=== PATIENT | male | born 1940 | race Caucasian/White ===

== ENCOUNTER 2016-09-09 10:59 | Outpatient (CLI) | payer MEDICARE, OTHER ==
[~2016-09-09] VITALS: Ht 182.9 cm; Wt 87.1 kg
[~2016-09-09 10:59] MED LIST: ACHD5005 PO; CETI10TA57 PO; DIVA500T PO; DIVA500T7 PO; DVL250TEC PO; OMEP20TA2 PO; PRV20T PO; SOTA80TA38 PO; STL80T PO; SULF-222 PO; WARF4TAB PO; WRF2T PO
--- OUTSIDE RECORDS SUMMARY | 2016-09-09 11:06 | XMS REPORT | Clinical Summary ---
Author Author Admin, E Organization [employer] Address Unknown Phone Unavailable Allergies, Adverse Reactions, Alerts Allergy Name Reaction Description Start Date Severity Status Provider NKDA Mild No Longer Active Giselle Ho APRN NKDA Critical No Longer Active Christian JOSEPH NKDA UNK Inactive Scarlett Jewell Conditions or Problems Problem Name Problem Code Onset Date Status Entry Date Provider Comment Standard Description Annotate TACHYCARDIA 785.0 Active Christian Jurado DO Tachycardia, unspecified ATRIAL FIBRILLATION WITH RAPID VENTRICULAR RESPONSE 427.31 Active Christian Jurado DO Atrial fibrillation FH DIABETES V18.0 Active Christian Jurado DO Family history of diabetes mellitus ATRIAL FIBRILLATION 427.31 Active Christian Jurado DO Atrial fibrillation HYPERTENSION 401.9 Active Christian Jurado DO Unspecified essential hypertension COUMADIN THERAPY V58.61 Active Christian Jurado DO Long-term (current) use of anticoagulants HYPERLIPIDEMIA 272.4 Active Christian Jurado DO Other and unspecified hyperlipidemia COMMON MIGRAINE 346.10 Active Christian Jurado DO Migraine without aura, without mention of intractable migraine, without mention of status migrainosus PREVENTIVE HEALTH CARE V70.0 Resolved Maribel Hamilton MD PhD Routine general medical examination at a health care facility THRUSH 112.0 Resolved Maribel Hamilton MD PhD Candidiasis of mouth UNSPECIFIED ANEMIA 285.9 Active Rupali Tunnelhill Anemia, unspecified ELBOW PAIN, RIGHT 719.42 Resolved Maribel Hamilton MD PhD Pain in joint involving upper arm CELLULITIS, SCALP 682.8 Resolved Maribel Hamilton MD PhD Cellulitis and abscess of other specified sites ANEMIA 285.9 Resolved Maribel Hamilton MD PhD Anemia , unspecified ABSCESS, LEG 682.6 Resolved Maribel Hamilton MD PhD Cellulitis and abscess of leg, except foot FRACTURE, WRIST, RIGHT 814.00 Resolved Maribel Hamilton MD PhD Closed fracture of carpal bone, unspecified BRONCHITIS-ACUTE 466.0 Inactive Christian Jurado DO Acute bronchitis UNSPECIFIED INFECTIVE OTITIS EXTERNA 380.10 Resolved Maribel Hamilton MD PhD Infective otitis externa, unspecified BRONCHITIS-ACUTE 466.0 Inactive Christian Santo Adrien DO Acute bronchitis SINUSITIS, ACUTE 461.9 Correction Maikel JOSEPH Acute sinusitis, unspecified ALLERGIC RHINITIS 477.9 Active Maikel JOSEPH Allergic rhinitis, cause unspecified 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 Maribel Hamilton MD PhD Neoplasm of uncertain behavior of skin Bronchitis-Acute 466.0 Active Christian Santo Adrien DO Acute bronchitis Lumbar strain, acute 847.2 Active Christian Santo Adrien DO Lumbar sprain 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 Christian Santo Adrien DO Diastasis of muscle Decreased hearing, bilateral 389.9 Active Giselle Ho [employer]BER[employer]IP SECRETARY Unspecified hearing loss Onychomycosis -dermatophytosis, nail 110.1 Active Jd Livingston MEMBERSHIP SECRETARY Dermatophytosis of nail Low hemoglobin 285.9 Active Allie Adams MA Anemia, unspecified PREVENTIVE HEALTH CARE ICD-V70.0 Inactive Maribel Hamilton MD PhD THRUSH ICD-112.0 Inactive Maribel Hamilton MD PhD 03/04 ELBOW PAIN, RIGHT ICD-719.42 Inactive Maribel Hamilton MD PhD CELLULITIS, SCALP ICD-682.8 Inactive Maribel Hamilton MD PhD ANEMIA ICD-285.9 Inactive Maribel Hamilton MD PhD 03/04 ABSCESS, LEG ICD-682.6 Inactive Maribel Hamilton MD PhD FRACTURE, WRIST, RIGHT ICD-814.00 Inactive Maribel Hamilton MD PhD BRONCHITIS-ACUTE ICD-466.0 Inactive Christian Jurado DO UNSPECIFIED INFECTIVE OTITIS EXTERNA ICD-380.10 Inactive Maribel Hamilton MD PhD BRONCHITIS-ACUTE ICD-466.0 Inactive Christian Jurado DO Medication List Medication Instructions Start Date Stop Date Generic Name NDC Status Provider Patient Instruction CYANOCOBALAMIN 1000 MCG/ML INJ SOLN inject IM weekly x 4 weeks then monthly CYANOCOBALAMIN 47304331511 Active Allie Adams MA Active COUMADIN 4 MG TABS 1 tablet orally daily except on Mon, Wed, and Fri take 1/2 tab. WARFARIN SODIUM 39941930084 Active Allie Adams MA Active LAMISIL 250 MG TAB 1 po qd TERBINAFINE HCL 42168845830 Active Jd Livingston APRN Active DIVALPROEX SODIUM 500 MG TBEC 1 TAB PO QOD DIVALPROEX SODIUM 44407434580 No Longer Active Christian Jurado DO Active OMEPRAZOLE 20 MG CPDR 1 tablet by mouth twice daily OMEPRAZOLE 54081085286 Active Christian Jurado DO Active GEMFIBROZIL 600 MG TABS 1 po daily GEMFIBROZIL 56655437210 Active Christian Jurado DO Active PRAVASTATIN SODIUM 10 MG TABS 1 po every hs PRAVASTATIN SODIUM 27806103156 No Longer Active Christian Jurado DO Active CYCLOBENZAPRINE HCL 10 MG TABS 1/2 tablet orally twice daily for muscle spasm CYCLOBENZAPRINE HCL 79358090617 Active Christian Jurado DO Active LEVAQUIN 500 MG TAB 1 tablet by mouth daily LEVOFLOXACIN 91792265800 No Longer Active Christian Jurado DO Active SOTALOL HCL 80 MG TABS 1/2 tab BID SOTALOL HCL 66093428903 Active Allie Adams MA Active PREDNISONE 20 MG TABS 3 po q day x 3 days, 2 po q days x 3 days , 1 po q days x 3 days, and 1/2 po q d x 4 PREDNISONE 40545089464 No Longer Active Maribel Hamilton MD PhD Active ZYRTEC ALLERGY 10 MG TABS 1 daily PRN CETIRIZINE HCL 50220512614 No Longer Active Maikel JOSEPH Active PREDNISONE 20 MG TAB 1 po bid 3 days, then daily for 3 days. 2012 PREDNISONE 98797564929 No Longer Active Maikel JOSEPH Active AZITHROMYCIN 250 MG TABS 2 po qd x 1 day, then 1 po qd x 4 days AZITHROMYCIN 11389058000 No Longer Active Christian Jurado DO Active POLYSACCHARIDE IRON COMPLEX 150 MG CAPS 1 tab by mouth b.i.d 2012 POLYSACCHARIDE IRON COMPLEX 51193700493 No Longer Active Christian Jurado DO Active MELOXICAM 7.5 MG TABS 1 tab by mouth daily MELOXICAM 90895221584 No Longer Active Christian Jurado DO Active PREDNISONE 20 MG TAB 1 po bid 3 days, then daily 3 days PREDNISONE 05442762752 No Longer Active Christian Jurado DO Active CEPHALEXIN 500 MG CAPS Take one (1) tablet by mouth four times a day CEPHALEXIN 79255016028 No Longer Active Christian Jurado DO Active AZITHROMYCIN 500 MG SOLR 1 po q day AZITHROMYCIN 84607982229 No Longer Active Christian Jurado DO Active BACTRIM DS 800-160 MG TAB 1 tab by mouth twice daily TRIMETHOPRIM-SULFAMETHOXAZOLE 45709419386 No Longer Active Christian Sykes PA Active NYSTATIN 585422 UNIT/ML SUSP 10 cc swish and swallow QID until 48 hours after thrush resolved NYSTATIN 51007481800 No Longer Active Christian Jurado DO Active VERAPAMIL HCL CR 120 MG [id number] 1 po bid VERAPAMIL HCL 55956400818 No Longer Active Maribel Hamilton MD PhD Active DIGOXIN 0.25 MG TABS Take one by mouth daily DIGOXIN 72345972170 No Longer Active Maribel Hamilton MD PhD Active ASPIRIN 81 MG CHEW TAB 1 tablet by mouth daily ASPIRIN 59492611134 No Longer Active Maribel Hamilton MD PhD Active PRILOSEC 10 MG CAP CR Take one by mouth daily OMEPRAZOLE 61586659619 No Longer Active Tracey Layton RN Active COUMADIN 3 MG TABS take 1 tablet every other day alternating with 4 mg 08/13 WARFARIN SODIUM 11769926109 No Longer Active Reshma Cordova Active COUMADIN 3 MG TAB Take one by mouth daily WARFARIN SODIUM 55051408168 No Longer Active THONY Zhou Active COUMADIN 5 MG FOR SOLN Take one by mouth daily WARFARIN SODIUM 70397649952 No Longer Active Reshma Cordova Active COUMADIN 5 MG FOR SOLN Take one by mouth daily COUMADIN 5 MG FOR SOLN WARFARIN SODIUM Inactive COUMADIN 3 MG TAB Take one by mouth daily COUMADIN 3 MG TAB 744943 WARFARIN SODIUM Inactive COUMADIN 3 MG TABS take 1 tablet every other day alternating with 4 mg 08/13 COUMADIN 3 MG TABS 271334 WARFARIN SODIUM Inactive PRILOSEC 10 MG CAP CR Take one by mouth daily PRILOSEC 10 MG CAP CR 372896 OMEPRAZOLE Inactive ASPIRIN 81 MG CHEW TAB 1 tablet by mouth daily ASPIRIN 81 MG CHEW TAB 156559 ASPIRIN Inactive DIGOXIN 0.25 MG TABS Take one by mouth daily DIGOXIN 0.25 MG TABS 740998 DIGOXIN Inactive VERAPAMIL HCL CR 120 MG [id number] 1 po bid VERAPAMIL HCL CR 120 MG [id number] VERAPAMIL HCL Inactive NYSTATIN 922743 UNIT/ML SUSP 10 cc swish and swallow QID until 48 hours after thrush resolved NYSTATIN 373115 UNIT/ML SUSP 731803 NYSTATIN Inactive BACTRIM DS 800-160 MG TAB 1 tab by mouth twice daily BACTRIM DS 800-160 MG TAB 510800 TRIMETHOPRIM-SULFAMETHOXAZOLE Inactive AZITHROMYCIN 500 MG SOLR 1 po q day AZITHROMYCIN 500 MG SOLR 20512803533 AZITHROMYCIN Inactive CEPHALEXIN 500 MG CAPS Take one (1) tablet by mouth four times a day CEPHALEXIN 500 MG CAPS 759733 CEPHALEXIN Inactive PREDNISONE 20 MG TAB 1 po bid 3 days, then daily 3 days PREDNISONE 20 MG TAB 585949 PREDNISONE Inactive MELOXICAM 7.5 MG TABS 1 tab by mouth daily MELOXICAM 7.5 MG TABS 395606 MELOXICAM Inactive POLYSACCHARIDE IRON COMPLEX 150 MG CAPS 1 tab by mouth b.i.d 2012 POLYSACCHARIDE IRON COMPLEX 150 MG CAPS POLYSACCHARIDE IRON COMPLEX Inactive PREDNISONE 20 MG TAB 1 po bid 3 days, then daily for 3 days. 2012 PREDNISONE 20 MG TAB 897942 PREDNISONE Inactive ZYRTEC ALLERGY 10 MG TABS 1 daily PRN ZYRTEC ALLERGY 10 MG TABS 9881827 CETIRIZINE HCL Inactive PREDNISONE 20 MG TABS 3 po q day x 3 days, 2 po q days x 3 days , 1 po q days x 3 days, and 1/2 po q d x 4 PREDNISONE 20 MG TABS 078152 PREDNISONE Inactive LEVAQUIN 500 MG TAB 1 tablet by mouth daily LEVAQUIN 500 MG TAB 089853 LEVOFLOXACIN Inactive PRAVASTATIN SODIUM 10 MG TABS 1 po every hs PRAVASTATIN SODIUM 10 MG TABS 243662 PRAVASTATIN SODIUM Inactive DIVALPROEX SODIUM 500 MG TBEC 1 TAB PO QOD DIVALPROEX SODIUM 500 MG TBEC 1988031 DIVALPROEX SODIUM Inactive AZITHROMYCIN 250 MG TABS 2 po qd x 1 day, then 1 po qd x 4 days AZITHROMYCIN 250 MG TABS 6747951 AZITHROMYCIN Inactive Advance Directives Directive Description Start Date LIVING WILL Vital Signs Date Name Value Unit Range Description blood pressure, diastolic - 8462-4 86 mm[Hg] BP pablo blood pressure, systolic - 8480-6 170 mm[Hg] BP sys pulse rate E&M - 8867-4 55 /min Heart rate temperature E&M 96.4 [degF] Body temperature weight E&M - 3141-9 198.5 [lb_av] Weight Measured blood pressure, diastolic - 8462-4 79 mm[Hg] BP pablo blood pressure, systolic - 8480-6 186 mm[Hg] BP sys height E&M - 8302-2 71.5 [in_us] Bdy height pulse rate E&M - 8867-4 65 /min Heart rate temperature E&M 96.6 [degF] Body temperature weight E&M - 3141-9 200 [lb_av] Weight Measured blood pressure, diastolic - 8462-4 78 mm[Hg] BP pablo blood pressure, systolic - 8480-6 181 mm[Hg] BP sys pulse rate E&M - 8867-4 63 /min Heart rate temperature E&M 97.5 [degF] Body temperature weight E&M - 3141-9 201 [lb_av] Weight Measured Diagnostic Results Date Name Value Unit Range Description Lab Report: CBC - Hematology leukocyte count, blood 5.0 10^3/MM^3 10*3/mm3 4.6-10.2 erythrocyte (RBC) count 4.31 10^6/MM^3 10*6/mm3 4.69-6.13 hemoglobin, blood 12.8 g/dL 13.5-17.5 hematocrit, blood 38.9 % 41.0-53.0 mean corpuscular volume, RBC 90 fL 80-97 mean corpuscular hemoglobin, RBC 29.6 pg 27.0-31.2 mean corpuscular hemoglobin concentration, RBC 32.8 G/DL % 31.8- 35.4 red blood cell distribution width 15.8 % 11.6-14.8 platelet count 258 10^3/MM^3 10*3/mm3 142-424 Lab Report: Comp. Metabolic Panel, Prothrombin Time - Chemistry urea nitrogen, blood 14 mg/dL 7-18 creatinine, serum 1.11 mg/dL 0.55-1.30 alanine aminotransferase (SGPT), serum 33 U/L 12-78 aspartate aminotransferase (SGOT), serum 33 U/L 15-37 calcium, serum 8.4 mg/dL 8.5-10.1 bilirubin, serum, total 0.30 mg/dL 0.00-1.00 blood glucose 87 mg/dL 65-110 chloride, serum 105 mmol/L 98-107 potassium, serum 5.0 mmol/L 3.5-5.2 carbon dioxide, venous blood 29.8 mmol/L 21.0-32.0 sodium, serum 141 mmol/L 136-145 Lab Report: Comp. Metabolic Panel, Prothrombin Time - Coagulation prothrombin time (patient) 15.6 SECS s 11.1-13.4 international normalized ratio (INR) 1.7 1.0-3.5 Lab Report: Prostatic Specific Ag - Chemistry prostate specific antigen 0.51 ng/mL 0.00-4.00 Lab Report: Prothrombin Time - Coagulation prothrombin time (patient) 19.6 SECS s 11.1-13.4 international normalized ratio (INR) 2.6 1.0-3.5 prothrombin time (patient) 19.8 SECS s 11.1-13.4 international normalized ratio (INR) 2.6 1.0-3.5 prothrombin time (patient) 23.8 SECS s 11.1-13.4 international normalized ratio (INR) 3.6 1.0-3.5 prothrombin time (patient) 17.7 SECS s 11.1-13.4 international normalized ratio (INR) 2.1 1.0-3.5 prothrombin time (patient) 17.8 SECS s 11.1-13.4 international normalized ratio (INR) 2.2 1.0-3.5 prothrombin time (patient) 19.5 SECS s 11.1-13.4 international normalized ratio (INR) 2.3 1.0-3.5 prothrombin time (patient) 21.3 SECS s 11.1-13.4 international normalized ratio (INR) 2.7 1.0-3.5 prothrombin time (patient) 23.4 SECS s 11.1-13.4 international normalized ratio (INR) 3.5 1.0-3.5 prothrombin time (patient) 14.4 SECS s 11.1-13.4 international normalized ratio (INR) 1.5 1.0-3.5 prothrombin time (patient) 21.3 SECS s 11.1-13.4 international normalized ratio (INR) 3.0 1.0-3.5 prothrombin time (patient) 24.1 SECS s 11.1-13.4 international normalized ratio (INR) 3.7 1.0-3.5 prothrombin time (patient) 24.0 SECS s 11.1-13.4 international normalized ratio (INR) 3.2 1.0-3.5 Encounters Code Encounter Date Provider Facility CPT-59631 Level 3 Est. Patient 13:20:04 HAND BUTTON SPLITTER Jd Livingston [facility] CPT-25690 Level 3 Est. Patient 13:18:56 HAND BUTTON SPLITTER Jd Livingston [facility] CPT-82135 Level 3 Est. Patient 15:16:09 HAND BUTTON SPLITTER Christian Jurado [facility] CPT-42839 Level 3 Est. Patient 16:11:38 CDT Christian Jurado [facility] CPT-23749 Level 3 Est. Patient 17:18:55 HAND BUTTON SPLITTER Christian Jurado [facility] CPT-03358 Level 3 Est. Patient 18:55:57 CDT Maribel Hamilton MD PhD [facility] CPT-26511 Level 3 Est. Patient 09:10:52 CDT Maikel JOSEPH [facility] CPT-87861 Level 3 Est. Patient 19:37:28 CDT Christian Jurado DO [facility] CPT-63301 Level 3 Est. Patient 11:27:07 CDT Maikel JOSEPH [facility] CPT-92565 Level 3 Est. Patient 10:37:42 HAND BUTTON SPLITTER Christian Jurado [facility] CPT-04989 Level 3 Est. Patient 19:05:10 HAND BUTTON SPLITTER Christian JOSEPH [facility] CPT-47661 Level 3 Est. Patient 10:36:38 CDT Christian W [facility] CPT-30795 Level 3 Est. Patient 10:42:08 CDT Christian Jurado [facility] CPT-67503 Level 3 Est. Patient 11:07:52 CDT Maribel Hamilton MD [facility] CPT-59835 Level 3 Est. Patient 10:53:06 HAND BUTTON SPLITTER Christian Jurado [facility] CPT-61184 Level 3 Est. Patient 19:43:24 CDT Christian Gal Jurado [facility] Procedures Code Procedure Name Date Entry Date Standard Description CPT-64938 Venipuncture Draw Fee 10:03:30 CDT CPT-66522 Abx/Therapy Injection 13:30:05 CDT CPT-J3420 Vitamin B12 1000mcg (Cyanocobalamin) 13:30:05 CDT 01/28 CPT-G0438 Initial Annual Wellness Exam 15:47:37 HAND BUTTON SPLITTER CPT-29717 EKG Trac and Interp 08:33:05 CDT CPT-01102 Venipuncture Draw Fee 08:13:08 CDT CPT-25224 Venipuncture Draw Fee 10:44:04 CDT CPT-55726 Venipuncture Draw Fee 09:03:02 CDT CPT-93049 Venipuncture Draw Fee 08:13:35 CDT CPT-65449 Venipuncture Draw Fee 08:03:00 HAND BUTTON SPLITTER CPT-56245 Venipuncture Draw Fee 08:07:27 HAND BUTTON SPLITTER CPT-58376 Venipuncture Draw Fee 08:09:17 HAND BUTTON SPLITTER CPT-41876 Venipuncture Draw Fee 11:31:41 HAND BUTTON SPLITTER CPT-86886 EKG Trac and Interp 10:59:36 HAND BUTTON SPLITTER CPT-91098 No Charge Offi Visit 08:29:27 HAND BUTTON SPLITTER [id number] Event Monitor - review and interp 08:32:49 HAND BUTTON SPLITTER CPT-42322 Venipuncture Draw Fee 10:38:07 CDT CPT-G0403 EKG Wlc To Medicare 08:31:49 HAND BUTTON SPLITTER
[2016-09-09 11:08] VITALS: BP 155/75
[2016-09-09] MEDS ORDERED: SOTA80TA PO (11:15)
[2016-09-09] MEDS ORDERED: LISI-552 PO (11:15)
[2016-09-09 11:42] LABS: BASOPHILS % (AUTO) 1 % (0-10); EOSINOPHILS # (AUTO) 0.3 10^3/uL (0.0-0.3); EOSINOPHILS % (AUTO) 5 % (0-10); LYMPHOCYTES # (AUTO) 1.6 X 10^3 (1.0-4.0); LYMPHOCYTES % (AUTO) 27 % (12-44); MEAN CORPUSCULAR HEMOGLOBIN 29 PG (25-34); MEAN CORPUSCULAR HGB CONC 33 G/DL (32-36); MEAN CORPUSCULAR VOLUME 88 FL (80-99); MEAN PLATELET VOLUME 10.1 FL (7.4-10.4); MONOCYTES # (AUTO) 0.7 X 10^3 (0.0-1.0); MONOCYTES % (AUTO) 12 % (0-12); NEUTROPHILS # (AUTO) 3.2 X 10^3 (1.8-7.8); NEUTROPHILS % (AUTO) 56 % (42-75); PLATELET COUNT 236 10^3/uL (130-400); RED BLOOD COUNT 4.57 10^6/uL (4.35-5.85); WHITE BLOOD COUNT 5.7 10^3/uL (4.3-11.0)
[2016-09-09 12:02] LABS: ANION GAP 8 MMOL/L (5-14); BLOOD UREA NITROGEN 12 MG/DL (7-18); BUN/CREATININE RATIO 13; CALCIUM 8.3 MG/DL (8.5-10.1); CARBON DIOXIDE 23 MMOL/L (21-32); CHLORIDE 110 MMOL/L (98-107); CREATININE SERUM 0.89 MG/DL (0.60-1.30); GFR ESTIMATED > 60; GLUCOSE 84 MG/DL (70-105); POTASSIUM 4.1 MMOL/L (3.6-5.0); SODIUM 141 MMOL/L (135-145)
== END 2016-09-09 11:30 | disposition home or self-care (01) ==
LOC: PREOP 10:59
PROVIDERS: ATTEND Otolaryngology Otolaryngology/Facial Plastic Surgery
DX: Z01.818 Encounter for other preprocedural examination (principal); L98.9 Disorder of the skin and subcutaneous tissue, unspecified
CPT/HCPCS: 36415; 80048; 85025; 87081; 93005

== ENCOUNTER 2016-09-12 07:35 | Day surgery (SDC) | payer MEDICARE, OTHER ==
[~2016-09-12] VITALS: Ht 182.9 cm; Wt 87.1 kg
[~2016-09-12 07:35] MED LIST changes: +LISI-552 PO; +SOTA80TA PO
[2016-09-12] MEDS ORDERED: FAMOTIDINE 20MG/2ML IV (PEPCID) IV ONE (08:00)
[2016-09-12] MEDS: LACTATED RINGERS 1,000 ML IV PRN ×2 (08:05→11:15)
[2016-09-12 08:23] VITALS: BP 162/76
[2016-09-12 08:27] LABS: INR 1.2 (0.8-1.4)
[2016-09-12] MEDS ORDERED: LIDOCAINE/EPI 1%-1:100,000 (XYLOCAINE) 20ML ONE (08:37)
[2016-09-12] MEDS ORDERED: MUPIROCIN 2% OINT 22 GM (BACTROBAN) TUBE ONE (08:37)
[2016-09-12] MEDS ORDERED: LACTATED RINGERS 1,000 ML IV ONE ×2 (09:26→11:35)
[2016-09-12] MEDS ORDERED: fentaNYL INJECTION 100 MCG/2 ML AMP ONE (09:26)
[2016-09-12] MEDS ORDERED: ONDANSETRON 4 MG/2 ML (SDV) Z0FRAN ONE ×2 (09:26→12:00)
[2016-09-12] MEDS ORDERED: proPOfol 200 MG/20 ML (DIPRIVAN) VIAL IV ONE (09:26)
[2016-09-12] MEDS ORDERED: SEVOFLURANE (ULTANE) 15 ML INHAL SOLN ONE ×4 (09:26→11:36)
[2016-09-12] MEDS ORDERED: LIDOCAINE PF 2% 10 ML (XYLOCAINE) AMP ONE (09:26)
[2016-09-12] MEDS ORDERED: MIDAZOLAM 2 MG/2 ML (VERSED) VIAL ONE (09:26)
--- NOTE | 2016-09-12 11:48 | Progress Note-Pre Operative ---
Pre-Operative Progress Note H&P Reviewed The H&P was reviewed, patient examined and no changes noted. Date H&P Reviewed: Sep 12, 2016 Time H&P Reviewed: 10:45 Pre-Operative Diagnosis: Posterior Scalp Lesion YESSI SORIANO MD Sep 12, 2016 11:48 am
--- NOTE | 2016-09-12 11:49 | Progress Note-Post Operative ---
Post-Operative Progess Note Pre-Operative Diagnosis Posterior Scalp Lesion Post-Operative Diagnosis same Post-Op Procedure Note Date of Procedure: Sep 12, 2016 Name of Procedure: Excision of Posterior Scalp Lesion with REconstruction with fTSG Anesthesia Type get Estimated blood loss (mL): minimal Specimen(s) collected posterior scalp lesion-squamous cell-margins clear of tumor YESSI SORIANO MD Sep 12, 2016 11:49 am
[2016-09-12] MEDS ORDERED: ONDANSETRON 4 MG/2 ML (SDV) Z0FRAN IVP PRN (12:00)
[2016-09-12] MEDS ORDERED: HYDROcodone/APAP 5 MG/325 MG (LORTAB) TAB PO PRN (12:00)
[2016-09-12] MEDS ORDERED: morphine INJ 10 MG/ML 1ML (SYR OR VIAL) ONE (12:00)
[2016-09-12] MEDS ORDERED: ACETAMINOPHEN 325 MG TABLET/CAPLET (TYLENOL) PO PRN (12:00)
[2016-09-12] MEDS ORDERED: MEPERIDINE (DEMEROL) INJ 50 MG/ML IVP PRN (12:00)
[2016-09-12] MEDS: morphine INJ 10 MG/ML 1ML (SYR OR VIAL) IVP PRN ×3 (12:03→12:22)
[2016-09-12 12:50] VITALS: BP 188/87
[2016-09-12 13:20] VITALS: BP 180/86
[2016-09-12] MEDS ORDERED: CEPH-507 PO (13:25)
[2016-09-12] MEDS ORDERED: HYDR-3812 PO (13:25)
[2016-09-12 13:50] VITALS: BP 184/85
== END 2016-09-12 14:15 | disposition home or self-care (01) ==
LOC: SDC 07:35
PROVIDERS: ATTEND Otolaryngology Otolaryngology/Facial Plastic Surgery
DX: C44.42 Squamous cell carcinoma of skin of scalp and neck (principal); Z79.01 Long term (current) use of anticoagulants
CPT/HCPCS: 36415; 85610; 88305; 88331; 88332

== ENCOUNTER → 2020-01-12 | Outpatient (CLI) | payer MEDICARE, OTHER ==
[~2020-01-12] MED LIST changes: +CATHETER FLUSH 10 ML SYR IV PRN; +CEPH-507 PO; +CHOL210P2 PO; +DICY20TA10 PO; +HOLD METFORMIN - RECEIVED CONTRAST 20 ML VIAL IV SCH; +IOHEXOL 350 MG/ML 100 ML (OMNIPAQUE 350) VIAL IV ONE; -SOTA80TA PO; +WARF2TAB PO
[2020-01-12 14:28] LABS: BUN/CREATININE RATIO 11; CREATININE SERUM 0.98 MG/DL (0.60-1.30); GFR ESTIMATED > 60
--- NOTE | 2020-01-12 19:03 | Diagnostic Imaging Report ---
INDICATION: Left-sided neck mass of 8 months duration, reportedly growing. No priors. Palpable abnormality corresponds to a mass in the superficial lobe of the left parotid gland measuring 1.6 cm AP x 1.5 cm transverse, it is just deep to the distorted and elevated skin surface. While low in density centrally it is greater than simple fluid and neoplasm benign or malignant cannot be differentiated. The mass would be readily amenable to percutaneous needle aspiration biopsy, if image guidance is required, this could be performed under CT or ultrasound. The right parotid space appeared normal and there are no pathologically enlarged nor morphologically distorted cervical lymph nodes. The nasopharynx, oropharynx and hypopharynx unremarkable. The prevertebral and retropharyngeal spaces unremarkable. There is intimal thickening and atherosclerosis involving the bilateral carotids with proximal right ICA stenosis of at least 50% and a tortuous course of the patent left cervical internal carotid. No bony destructive lesion or fracture. There is multilevel cervical spondylosis, chronic. CHEST: Supraclavicular fossa and thoracic inlet unremarkable. Thoracic aorta patent and nonaneurysmal. There is a small hiatal hernia. There is no pleural or pericardial effusion. No pulmonary nodule or suspicious lung mass. No hilar, mediastinal, axillary or chest wall lymphadenopathy. No bony destructive process or fracture. The lungs are free of infiltrate. The visualized upper abdomen demonstrates previous cholecystectomy. Intact adrenal glands and nonfocal liver. IMPRESSION: Neck: 1. Intraparotid mass in its superficial lobe shows rim enhancement and central complex low-density material, necrotic neoplasm benign or malignant suspected; this would be readily amenable to percutaneous needle aspiration biopsy. 2. The remaining portions of the neck normal. In particular, the remaining parotid spaces bilaterally as well as cervical lymph node chains normal and the mucosal spaces were normal. CHEST: No metastatic disease or acute abnormality. Dictated by: Dictated on workstation # [id number]
== END ==
LOC: RAD 13:57
PROVIDERS: ATTEND Nurse Practitioner Family
DX: R22.1 Localized swelling, mass and lump, neck (principal); K11.8 Other diseases of salivary glands; Z90.49 Acquired absence of other specified parts of digestive tract
CPT/HCPCS: 36415; 70491; 71260; 82565; 84520

== ENCOUNTER 2020-02-08 05:38 | Outpatient (RCR) | payer MEDICARE, OTHER ==
[~2020-02-08] VITALS: Ht 182.9 cm; Wt 85.0 kg
[~2020-02-08 05:38] MED LIST changes: -CATHETER FLUSH 10 ML SYR IV PRN; -HOLD METFORMIN - RECEIVED CONTRAST 20 ML VIAL IV SCH; -IOHEXOL 350 MG/ML 100 ML (OMNIPAQUE 350) VIAL IV ONE
[2020-02-08 08:59] VITALS: BP 166/76
--- NOTE | 2020-02-08 09:41 | Diagnostic Imaging Report ---
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 These measure up to 2.3 cm in diameter. Lungs are clear. There are no effusions or pneumothoraces. Heart size and pulmonary vascularity are normal. IMPRESSION: Subcutaneous nodules versus artifact of the left lower chest. Dictated by: Dictated on workstation # [id number]
[2020-02-08 09:53] LABS: BASOPHILS % (AUTO) 1 % (0-10); EOSINOPHILS # (AUTO) 0.4 10^3/uL (0.0-0.3); EOSINOPHILS % (AUTO) 8 % (0-10); HEMATOCRIT 36 % (40-54); HEMOGLOBIN 11.6 G/DL (13.3-17.7); LYMPHOCYTES # (AUTO) 1.4 X 10^3 (1.0-4.0); LYMPHOCYTES % (AUTO) 24 % (12-44); MEAN CORPUSCULAR HEMOGLOBIN 28 PG (25-34); MEAN CORPUSCULAR HGB CONC 32 G/DL (32-36); MEAN CORPUSCULAR VOLUME 88 FL (80-99); MEAN PLATELET VOLUME 9.5 FL (7.4-10.4); MONOCYTES # (AUTO) 0.7 X 10^3 (0.0-1.0); MONOCYTES % (AUTO) 13 % (0-12); NEUTROPHILS # (AUTO) 3.1 X 10^3 (1.8-7.8); NEUTROPHILS % (AUTO) 55 % (42-75); PLATELET COUNT 255 10^3/uL (130-400); RED CELL DISTRIBUTION WIDTH 15.6 % (10.0-14.5); WHITE BLOOD COUNT 5.8 10^3/uL (4.3-11.0)
[2020-02-08 10:07] LABS: BUN/CREATININE RATIO 12; CALCIUM 8.3 MG/DL (8.5-10.1); CARBON DIOXIDE 21 MMOL/L (21-32); CHLORIDE 114 MMOL/L (98-107); CREATININE SERUM 0.93 MG/DL (0.60-1.30); GFR ESTIMATED > 60; GLUCOSE 92 MG/DL (70-105); POTASSIUM 3.7 MMOL/L (3.6-5.0); SODIUM 142 MMOL/L (135-145)
[2020-02-08] MEDS ORDERED: CHOL378P PO (10:18)
[2020-02-08] MEDS ORDERED: OMEP-401 PO (10:18)
[2020-02-08] MEDS ORDERED: STL80T PO (10:18)
[2020-02-08] MEDS ORDERED: RIVA20TA PO (10:18)
== END 2020-02-08 10:22 | disposition home or self-care (01) ==
LOC: PREOP 05:38
PROVIDERS: ATTEND Otolaryngology Otolaryngology/Facial Plastic Surgery
DX: Z01.812 Encounter for preprocedural laboratory examination (principal); Z01.810 Encounter for preprocedural cardiovascular examination; Z01.811 Encounter for preprocedural respiratory examination; C07 Malignant neoplasm of parotid gland; Z20.828 Contact with and (suspected) exposure to other viral communicable diseases
CPT/HCPCS: 71046; 80048; 85025; 87081; 93005; U0002; 36415; 87635

== ENCOUNTER 2020-02-11 06:04 | Day surgery (SDC) | payer MEDICARE, OTHER ==
[~2020-02-11] VITALS: Ht 182.9 cm; Wt 85.0 kg
[2020-02-11] VITALS (9 sets, daily range): BP systolic 171–184; BP diastolic 75–94
[~2020-02-11 06:04] MED LIST changes: +CHOL378P PO; +OMEP-401 PO; +RIVA20TA PO
[2020-02-11] MEDS: LACTATED RINGERS 1,000 ML IV PRN ×2 (06:23→10:44)
[2020-02-11] MEDS ORDERED: LIDOCAINE PF 2% 5 ML (XYLOCAINE) VIAL ONE (06:41)
[2020-02-11] MEDS ORDERED: fentaNYL INJECTION 100 MCG/2 ML AMP ONE ×2 (06:41→09:07)
[2020-02-11] MEDS ORDERED: ONDANSETRON 4 MG/2 ML (SDV) Z0FRAN ONE (06:41)
[2020-02-11] MEDS ORDERED: SEVOFLURANE (ULTANE) 15 ML INHAL SOLN ONE ×8 (06:41→10:45)
[2020-02-11] MEDS ORDERED: proPOfol 200 MG/20 ML (DIPRIVAN) VIAL IV ONE (06:41)
[2020-02-11] MEDS ORDERED: SUCCINYLCHOLINE INJ 100 MG/5 ML SYR ONE (06:41)
--- NOTE | 2020-02-11 07:05 | Progress Note-Pre Operative ---
Pre-Operative Progress Note H&P Reviewed The H&P was reviewed, patient examined and no changes noted. 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
[2020-02-11] MEDS ORDERED: MUPIROCIN 2% OINT 22 GM (BACTROBAN) TUBE ONE (07:06)
[2020-02-11] MEDS ORDERED: LIDOCAINE/EPI 1%-1:100,000 (XYLOCAINE) 20ML ONE (07:06)
[2020-02-11] MEDS ORDERED: GLYCOPYRROLATE 0.2 MG/ML (ROBINUL) 2 ML VIAL ONE (10:03)
[2020-02-11] MEDS ORDERED: D5 1/2 NS W/KCL 20 MEQ/L 1,000 ML IV SCH (10:37)
--- NOTE | 2020-02-11 10:37 | Progress Note-Post Operative ---
Post-Operative Progess Note Surgeon (s)/Sales Representative [employer] (s) Surgeon YESSI SORIANO MD [employer] n/a Pre-Operative Diagnosis Metastatic scca of Left Parotid gland Post-Operative Diagnosis same Post-Op Procedure Note Date of Procedure: Feb 11, 2020 Name of Procedure Performed: Left Parotidectomy with excision of overlying skin, REconstruction with local advancement flap Description & Findings Description and Findings: n/a Anesthesia Type get Estimated Blood Loss minimal Packing none. Specimen(s) collected/removed left paerotid-margins clear YESSI SORIANO MD Feb 11, 2020 10:37
[2020-02-11] MEDS ORDERED: ACETAMINOPHEN 325 MG TABLET PO PRN (10:45)
--- NOTE | 2020-02-11 11:28 | Anesthesia-General Post-Op ---
General Patient Condition Mental Status/LOC: Same as Preop Cardiovascular: Satisfactory Nausea/Vomiting: Absent Respiratory: Satisfactory Pain: Controlled Complications: Absent Post Op Complications Complications None Follow Up Care/Instructions Patient Instructions None needed. Anesthesia/Patient Condition Patient Condition Patient is doing well, no complaints, stable vital signs, no apparent adverse anesthesia problems. No complications reported per nursing. JOSE VIGIL CRNA Feb 11, 2020 11:28
--- NOTE | 2020-02-11 11:30 | NUR ---
MELA CASTELLON admitted to room 412 , with an admitting diagnosis of post op parotidectomy , on 02/11/20 from pacu, accompanied by family/staff.MELA CASTELLON introduced to surroundings, call light, bed controls, phone, TV, temperature control, lights, meal times, smoking policy, visitor policy, side rail policy, bathrooms and showers. Patient Rights given to patient in the handbook. MELA CASTELLON verbalizes understanding that [facility] is not responsible for the loss or damage to any personal effects or valuables that are kept in the patients posession during their hospitalization. MELA CASTELLON verbalizes understanding of Interdisciplinary Patient Education. Patient and/or family were informed about the Rapid Response Team and its purpose.
--- NOTE | 2020-02-11 12:13 | NUR ---
Patient has been running high BP and low HR. current vitals BP- 180/92 and HR 50. patient stated he feels fine just sleepy from surgery, present and stated BP usually runs on the higher end. Dr Hernandez notified and stated encourage pain medication and restart home medications (minus Xarelto) at this time because BP it probably high due to pain. David also stated he plans on stopping by the hospital later this evening to see patient. will continue to monitor BP and change in symptoms
[2020-02-11] MEDS: HYDROcodone/APAP 5 MG/325 MG (LORTAB) TAB PO PRN ×2 (12:54→18:35)
--- NOTE | 2020-02-11 14:20 | NUR ---
BP rechecked currently 190/85 HR 50. no current complaints from patient or changes in symptoms at this time
[2020-02-11] MEDS ORDERED: CHOLESTYRAMINE 4 GM (QUESTRAN LITE, PREVALITE) PKT PO SCH (14:30)
--- NOTE | 2020-02-11 16:00 | NUR ---
Dr Hernandez here at this time to see patient. verbalized to this RN to DC fluids at this time and stated patient could be advanced to a soft diet. also stated to continue to just monitor BP at this time, no additional interventions necessary but to notify him if BP elevated above [address] will be by in the AM to see patient again
--- NOTE | 2020-02-11 20:59 | NUR ---
BETAPACE MEDICATION HELD AT THIS TIME FOR PULSE RATE OF 47.
[2020-02-11] MEDS ORDERED: SOTALOL 80 MG (BETAPACE) TAB PO SCH (21:00)
[2020-02-11] MEDS ORDERED: DICYCLOMINE 10 MG (BENTYL) CAP PO SCH (21:00)
[2020-02-12 00:25] VITALS: BP 132/62
[2020-02-12 04:00] VITALS: BP 135/61
--- NOTE | 2020-02-12 06:25 | Progress Note ---
Standard Progress Note Progress Notes/Assess & Plan Date Seen by a Provider: Feb 12, 2020 Time Seen by a Provider: 06:30 Progress/Assessment & Plan ENT-David-02/11 Doing well minimal drainage from drain and minimal discomfort flaps intact and with good cap refill mild crusting along incision line natasha diet and urinating well Exam facial movements normal bilat drain dc'ed will discaharge post breakfast send bactorban home with patient use bid along incision line hydrogen peroxide as needed for the crusting gabriel lsee back in 7-10 days for sutrue removal discharge instrucitons given discharge prescriptions in chart Final Diagnosis Metastatic scca ofr Left parotid YESSI SORIANO MD Feb 12, 2020 06:25
[2020-02-12 07:30] VITALS: BP 150/66
[2020-02-12] MEDS ORDERED: CHOLESTYRAMINE 4 GM (QUESTRAN LITE, PREVALITE) PKT PO SCH (08:00)
[2020-02-12] MEDS: HYDROcodone/APAP 5 MG/325 MG (LORTAB) TAB PO PRN (08:09)
[2020-02-12] MEDS ORDERED: PANTOPRAZOLE 20 MG TABLET (PROTONIX) PO SCH (09:00)
[2020-02-12 09:10] VITALS: BP 155/66
--- NOTE | 2020-02-12 09:10 | NUR ---
MELA CASTELLON demonstrates understanding of discharge instructions and accurately returns instructions upon questioning. Copy of Post-Discharge Instructions given to PT. MELA CASTELLON is able to manage continuing needs after discharge. Patients belongings returned to PT. Patient discharged from 412-1 on 02/12/20 at 0910. MELA CASTELLON left floor via W/C, accompanied by STAFF AND PER AUTO.
== END 2020-02-12 09:10 | disposition home or self-care (01) ==
LOC: SDC 06:04 → 4TH 11:30 → SDC 02-12 09:10
PROVIDERS: ATTEND Otolaryngology Otolaryngology/Facial Plastic Surgery
DX: C79.89 Secondary malignant neoplasm of other specified sites (principal); C44.329 Squamous cell carcinoma of skin of other parts of face; I48.91 Unspecified atrial fibrillation; J30.2 Other seasonal allergic rhinitis; K21.9 Gastro-esophageal reflux disease without esophagitis; Z79.01 Long term (current) use of anticoagulants; Z79.899 Other long term (current) drug therapy

== ENCOUNTER 2020-05-18 09:37 | Outpatient (RCR) | payer MEDICARE, OTHER ==
[2020-03-22 10:05] LABS: BUN/CREATININE RATIO 11; CREATININE SERUM 1.08 MG/DL (0.60-1.30); GFR ESTIMATED > 60
== END 2020-06-06 | disposition home or self-care (01) ==
LOC: ONC 09:37
PROVIDERS: ATTEND Radiology Radiation Oncology
DX: Z51.0 Encounter for antineoplastic radiation therapy (principal); C44.90 Unspecified malignant neoplasm of skin, unspecified; C77.0 Secondary and unspecified malignant neoplasm of lymph nodes of head, face and neck
CPT/HCPCS: 77300; 77301; 77334; 77336; 77338; 77386; 82565; 84520; 99204; 99212

== ENCOUNTER 2020-07-06 14:12 | Outpatient (RCR) | payer MEDICARE, OTHER ==
[~2020-07-06 14:12] MED LIST changes: -LISI-552 PO; +LISI20TA26 PO
== END 2020-10-04 | disposition home or self-care (01) ==
LOC: ONC 14:12
PROVIDERS: ATTEND Radiology Radiation Oncology
DX: C44.92 Squamous cell carcinoma of skin, unspecified (principal); C77.0 Secondary and unspecified malignant neoplasm of lymph nodes of head, face and neck
CPT/HCPCS: 99213

== ENCOUNTER 2021-01-04 08:14 | Outpatient (RCR) | payer MEDICARE, OTHER | END 2021-04-04 | disposition home or self-care (01) | LOC: ONC 08:14 | PROVIDERS: ATTEND Radiology Radiation Oncology | DX: C44.92 Squamous cell carcinoma of skin, unspecified (principal); C77.0 Secondary and unspecified malignant neoplasm of lymph nodes of head, face and neck; B37.0 Candidal stomatitis | CPT/HCPCS: 99213 ==

== ENCOUNTER 2021-08-02 09:08 | Outpatient (RCR) | payer MEDICARE, OTHER ==
[~2021-08-02 09:08] MED LIST changes: +DICY20TA PO; -DICY20TA10 PO
[2021-08-02 10:18] LABS: CREATININE SERUM 1.05 MG/DL (0.60-1.30)
== END 2021-08-20 | disposition home or self-care (01) ==
LOC: ONC 09:08
PROVIDERS: ATTEND Radiology Radiation Oncology
DX: C44.92 Squamous cell carcinoma of skin, unspecified (principal); C77.0 Secondary and unspecified malignant neoplasm of lymph nodes of head, face and neck
CPT/HCPCS: 82565; 84520; G0463; 99213

== ENCOUNTER → 2021-08-13 | Outpatient (CLI) | payer MEDICARE, OTHER ==
[~2021-08-13] MED LIST changes: +CATHETER FLUSH 10 ML SYR IV PRN; +HOLD METFORMIN - RECEIVED CONTRAST 20 ML VIAL IV SCH; +IOHEXOL 350 MG/ML 100 ML (OMNIPAQUE 350) VIAL IV ONE; +NS 100 ML (IVPB) BAG IV ONE
--- NOTE | 2021-08-13 10:10 | Diagnostic Imaging Report ---
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 COMPARISON: 01/12/2020 CT NECK: There has been apparent resection of left parotid gland nodule with mild associated skin thickening and induration along the inferior margin of the left parotid salivary gland. Right parotid salivary gland is unremarkable and there is no evidence of submandibular salivary gland or thyroid gland lesion. No pathologically enlarged adenopathy is identified. There is atherosclerotic calcification within the carotid bulbs with moderate narrowing at the proximal internal carotid arteries, bilaterally. No bone lesion is identified. Great vessels appear to be patent in the neck. There is loss of normal cervical lordosis with diffuse disc space narrowing and endplate spurring. Overall, there is no evidence of significant adverse change. IMPRESSION: Interval resection of left parotid gland nodule with associated induration and skin thickening in this region likely due to scarring. CT of the neck is otherwise stable and unremarkable. CT CHEST: Lungs remain clear. There is no significant pleural or pericardial fluid. There is no evidence of supraclavicular, mediastinal, axillary or hilar adenopathy. Mild aortic atherosclerotic calcification is noted. Upper abdominal sections are stable and unremarkable. Note is made of coronary artery calcification. IMPRESSION: Coronary artery disease without evidence of acute abnormality or metastatic disease in the chest. Dictated by: Dictated on workstation # [id number]
== END ==
LOC: RAD 09:15
PROVIDERS: ATTEND Radiology Radiation Oncology
DX: C44.90 Unspecified malignant neoplasm of skin, unspecified (principal); C79.89 Secondary malignant neoplasm of other specified sites; C77.0 Secondary and unspecified malignant neoplasm of lymph nodes of head, face and neck; I25.10 Atherosclerotic heart disease of native coronary artery without angina pectoris
CPT/HCPCS: 70491; 71260

== ENCOUNTER 2021-12-27 09:13 | Outpatient (RCR) | payer MEDICARE, OTHER ==
[~2021-12-27 09:13] MED LIST changes: -CATHETER FLUSH 10 ML SYR IV PRN; -CHOL378P PO; +CHOL378P6 PO; -HOLD METFORMIN - RECEIVED CONTRAST 20 ML VIAL IV SCH; -IOHEXOL 350 MG/ML 100 ML (OMNIPAQUE 350) VIAL IV ONE; -NS 100 ML (IVPB) BAG IV ONE
== END 2022-01-17 | disposition home or self-care (01) ==
LOC: ONC 09:13
PROVIDERS: ATTEND Radiology Radiation Oncology
DX: C44.92 Squamous cell carcinoma of skin, unspecified (principal); C77.0 Secondary and unspecified malignant neoplasm of lymph nodes of head, face and neck
CPT/HCPCS: 99213

== ENCOUNTER 2022-03-14 09:15 | Outpatient (RCR) | payer MEDICARE, OTHER ==
[~2022-03-14 09:15] MED LIST changes: +CHOL378P12 PO; -CHOL378P6 PO
== END 2022-03-20 | disposition home or self-care (01) ==
LOC: ONC 09:15
PROVIDERS: ATTEND Radiology Radiation Oncology
DX: C44.92 Squamous cell carcinoma of skin, unspecified (principal); C77.0 Secondary and unspecified malignant neoplasm of lymph nodes of head, face and neck
CPT/HCPCS: 99213

== ENCOUNTER 2022-04-26 05:29 | Outpatient (CLI) | payer MEDICARE, OTHER ==
[~2022-04-26] VITALS: Ht 182.9 cm; Wt 85.0 kg
[2022-04-26] MEDS ORDERED: RIVA20TA PO (15:03)
== END 2022-04-26 15:22 | disposition home or self-care (01) ==
LOC: PREOP 05:29
PROVIDERS: ATTEND Otolaryngology Otolaryngology/Facial Plastic Surgery
DX: Z01.818 Encounter for other preprocedural examination (principal)

== ENCOUNTER 2022-05-03 06:13 | Day surgery (SDC) | payer MEDICARE, OTHER ==
[2022-05-03] VITALS (10 sets, daily range): BP systolic 109–174; BP diastolic 67–95
[~2022-05-03] VITALS: Ht 182 cm; Wt 85.0 kg
[2022-05-03 06:49] LABS: BASOPHILS % (AUTO) 1 % (0-10); EOSINOPHILS # (AUTO) 0.6 10^3/uL (0.0-0.3); EOSINOPHILS % (AUTO) 9 % (0-10); HEMATOCRIT 35 % (40-54); HEMOGLOBIN 11.7 g/dL (13.3-17.7); LYMPHOCYTES # (AUTO) 1.2 10^3/uL (1.0-4.0); LYMPHOCYTES % (AUTO) 19 % (12-44); MEAN CORPUSCULAR HEMOGLOBIN 32 pg (25-34); MEAN CORPUSCULAR HGB CONC 33 g/dL (32-36); MEAN CORPUSCULAR VOLUME 95 fL (80-99); MEAN PLATELET VOLUME 9.2 fL (9.0-12.2); MONOCYTES # (AUTO) 0.7 10^3/uL (0.0-1.0); MONOCYTES % (AUTO) 11 % (0-12); NEUTROPHILS # (AUTO) 3.9 10^3/uL (1.8-7.8); NEUTROPHILS % (AUTO) 60 % (42-75); PLATELET COUNT 247 10^3/uL (130-400); WHITE BLOOD COUNT 6.4 10^3/uL (4.3-11.0)
[2022-05-03 07:19] LABS: CALCIUM 8.9 MG/DL (8.5-10.1); CREATININE SERUM 1.08 MG/DL (0.60-1.30); POTASSIUM 3.6 MMOL/L (3.6-5.0)
[2022-05-03] MEDS: LACTATED RINGERS 1,000 ML IV PRN ×2 (07:30→09:46)
[2022-05-03] MEDS ORDERED: MUPIROCIN 2% OINT 22 GM (BACTROBAN) TUBE ONE (07:41)
[2022-05-03] MEDS ORDERED: LIDOCAINE/EPI 2% 1:200,00 (XYLOCAINE) 10 ML VIAL ONE (07:41)
[2022-05-03] MEDS ORDERED: proPOfol 200 MG/20 ML (DIPRIVAN) VIAL IV ONE (07:51)
[2022-05-03] MEDS ORDERED: SEVOFLURANE (ULTANE) 15 ML INHAL SOLN ONE ×3 (07:51→09:47)
[2022-05-03] MEDS ORDERED: ONDANSETRON 4 MG/2 ML (SDV) Z0FRAN ONE (07:51)
[2022-05-03] MEDS ORDERED: fentaNYL INJ 100 MCG/2 ML AMP ONE (07:51)
[2022-05-03] MEDS ORDERED: LIDOCAINE PF 2% 5 ML (XYLOCAINE) VIAL ONE (07:51)
[2022-05-03] MEDS ORDERED: GLYCOPYRROLATE 0.2 MG/ML (ROBINUL) 2 ML VIAL ONE (08:53)
--- NOTE | 2022-05-03 10:01 | Progress Note-Pre Operative ---
Pre-Operative Progress Note Date of Available H&P: May 03, 2022 Date H&P Reviewed: May 03, 2022 Time H&P Reviewed: 09:00 History & Physical: H&P Reviewed, Patient Examed, No changes noted Changes from last HP none Pre-Operative Diagnosis: Left SCalp Lesion, Right EAr Lesion YESSI SORIANO MD May 03, 2022 10:01
--- NOTE | 2022-05-03 10:03 | Progress Note-Post Operative ---
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 Specimen(s) collected/removed scalp lesion- and ear lesion to pathology for frozen sections YESSI SORIANO MD May 03, 2022 10:03
[2022-05-03] MEDS ORDERED: ACETAMINOPHEN 325 MG TABLET PO PRN (10:15)
[2022-05-03] MEDS ORDERED: HYDROcodone/APAP 5 MG/325 MG (LORTAB) TAB PO PRN (10:15)
--- NOTE | 2022-05-03 10:26 | Anesthesia-General Post-Op ---
General Patient Condition Mental Status/LOC: Same as Preop Cardiovascular: Satisfactory Nausea/Vomiting: Absent Respiratory: Satisfactory Pain: Controlled Complications: Absent Post Op Complications Complications None Follow Up Care/Instructions Patient Instructions None needed. Anesthesia/Patient Condition Patient Condition Patient is doing well, no complaints, stable vital signs, no apparent adverse anesthesia problems. No complications reported per nursing. HIMANSHU WHITNEY CRNA May 03, 2022 10:26
[2022-05-03] MEDS ORDERED: ONDANSETRON 4 MG/2 ML (SDV) Z0FRAN IVP PRN (10:30)
[2022-05-03] MEDS ORDERED: MEPERIDINE (DEMEROL) INJ 50 MG/ML IVP ONE (10:30)
[2022-05-03] MEDS ORDERED: morphine INJ 10 MG/ML 1ML (SYR OR VIAL) IVP ONE (10:30)
[2022-05-03] MEDS ORDERED: PROMETHAZINE INJ 25 MG/ML (PHENERGAN) AMP IVP ONE (10:30)
== END 2022-05-03 12:38 | disposition home or self-care (01) ==
LOC: SDC 06:13
PROVIDERS: ATTEND Otolaryngology Otolaryngology/Facial Plastic Surgery
DX: C44.42 Squamous cell carcinoma of skin of scalp and neck (principal); C44.222 Squamous cell carcinoma of skin of right ear and external auricular canal
CPT/HCPCS: 36415; 80048; 85025; 87081